=== PATIENT | male | born 1980 | race Caucasian/White ===

== ENCOUNTER 2017-07-27 19:23 | Emergency (ER) | payer SELFPAY ==
[~2017-07-27 19:23] MED LIST: OSEL75 PO; ZOFR4TAB3 SL
== END 2017-07-27 20:12 | disposition left against medical advice (07) ==
LOC: PHED 19:23
DX: Z53.21 Procedure and treatment not carried out due to patient leaving prior to being seen by health care provider (principal)
CPT/HCPCS: 99281